=== PATIENT | female | born 1985 | race Caucasian/White ===

== ENCOUNTER 2019-05-04 17:37 | Emergency (ER) | payer OTHER ==
--- NOTE | 2019-05-04 17:58 | PDOC ---
Rapid Medical Evaluation Time Seen by Provider: 05/04/19 17:57 Medical Evaluation: Allergies Allergy/AdvReac Type Severity Reaction Status Date / Time No Known Allergies Allergy Verified 06/28/13 14:12 05/04/19 17:57 HPI:Feeling light headed, dizzy, SOB, Blurry vision sent by urgent care x1 week PE:No gross deficits ORDERS: Labs, U preg, UA and Cx Discharge Disposition - Diagnosis Light headed - Referrals - Patient Instructions - Post Discharge Activity
[2019-05-04 17:59] VITALS: BMI 23.1
[2019-05-04] MEDS ORDERED: SODIUM CHLORIDE 0.9% 500 ML INFUS.BAG IV ONE (19:05)
--- NOTE | 2019-05-04 19:09 | PDOC ---
History of Present Illness - General Chief Complaint: Lightheaded Stated Complaint: DIZZINESS/NAUSEA Time Seen by Provider: 05/04/19 17:57 History Source: Patient Exam Limitations: No Limitations - History of Present Illness Initial Comments: Courtney Hernandez is a 33 yo F who denies having any pmh who presents to the ER from urgent care because she has been experiencing Dizziness, nauseous but no emesis, SOB, lightheadedness, numbness and tingling in both her hands and has been feeling vague overall off symptoms for the past 4 days. Patient states she has tried taking ibuprofen for her symptoms with no relief. Patient states she cannot be as she has only had unprotected sexual intercourse w 1 partner about a week ago but her period started today. Patient denies recent travel, hormone usage, surgeries, immobility, personal or family hx of blood clots, cancer, smoking, leg swelling, palpitations, or hemoptysis. LMP: Began today PCP: Dr. Treadwell PSH: None reported Social Hx: Denies smoking, drinking, or other substance usage Allergies: NKA, NKDA Past History - Past Medical History Allergies/Adverse Reactions: Allergies Allergy/AdvReac Type Severity Reaction Status Date / Time No Known Allergies Allergy Verified 05/04/19 17:57 Home Medications: Ambulatory Orders NK [No Known Home Medication] 05/04/19 - Reproductive History (#): 1 Para: 0 Therapeutic (s) & number: No Spontaneous : 0 - Suicide/Smoking/Psychosocial Hx Smoking Status: Yes Smoking History: Never smoked Number of Cigarettes Smoked Daily: 6 Hx Alcohol Use: No Drug/Substance Use Hx: No Review of Systems - Review of Systems Able to Perform ROS?: Yes Comments:: CONSTITUTIONAL: Absent: fever, chills, diaphoresis, generalized weakness, malaise, loss of appetite HEENT: Absent: rhinorrhea, nasal congestion, throat pain, throat swelling, difficulty swallowing, mouth swelling, ear pain, eye pain, visual Changes CARDIOVASCULAR: Absent: chest pain, syncope, palpitations, irregular heart rate, lightheadedness , peripheral edema RESPIRATORY: Present: shortness of breath Absent: cough, dyspnea with exertion, orthopnea, wheezing, stridor, hemoptysis GASTROINTESTINAL: Present: Nausea Absent: abdominal pain, abdominal distension, vomiting, diarrhea, constipation, melena, hematochezia GENITOURINARY: Absent: dysuria, frequency, urgency, hesitancy, hematuria, flank pain, genital pain MUSCULOSKELETAL: Absent: myalgia, arthralgia, joint swelling SKIN: Absent: rash, itching, pallor HEMATOLOGIC/IMMUNOLOGIC: Absent: easy bleeding, easy bruising, lymphadenopathy, frequent infections ENDOCRINE: Absent: unexplained weight gain, unexplained weight loss, heat intolerance, cold intolerance NEUROLOGIC: Present: dizziness, paresthesias Absent: headache, focal weakness, unsteady gait, seizure, mental status changes , bladder or bowel incontinence PSYCHIATRIC: Present: Anxiety Absent: depression, suicidal or homicidal ideation, hallucinations. *Physical Exam - Vital Signs Last Vital Signs Temp Pulse Resp BP Pulse Ox 98.9 F 85 18 129/81 99 05/04/19 17:57 05/04/19 17:57 05/04/19 17:57 05/04/19 17:57 05/04/19 17:57 - Physical Exam Comments: GENERAL: Well developed, well nourished. Awake and alert. No acute distress, but mildly anxious. HEENT: Normocephalic, atraumatic. PERRLA, EOMI. No conjunctival pallor. Sclera are non- icteric. Moist mucous membranes. Oropharynx is clear. NECK: Supple. Full ROM. No JVD. CARDIOVASCULAR: Regular rate and rhythm. No murmurs, rubs, or gallops. Distal pulses are 2+ and symmetric. PULMONARY: No evidence of respiratory distress. Lungs clear to auscultation bilaterally. No wheezing, rales or rhonchi. ABDOMINAL: Soft. Non-tender. Non-distended. No rebound or guarding. No organomegaly. Normoactive bowel sounds. MUSCULOSKELETAL Normal range of motion at all joints. No bony deformities or tenderness. No CVA tenderness. EXTREMITIES: No cyanosis. No clubbing. No edema. No calf tenderness. SKIN: Warm and dry. Normal capillary refill. No rashes. No jaundice. NEUROLOGICAL: Alert, awake, appropriate. Cranial nerves 2-12 intact. No deficits to light touch in face, upper extremities and lower extremities. No motor deficits in the in face, upper extremities and lower extremities. Normal speech. Gait is normal without ataxia. PSYCHIATRIC: Anxious affect. Cooperative. Good eye contact. Appropriate mood. ED Treatment Course - LABORATORY CBC & Chemistry Diagram: 05/04/19 19:13 05/04/19 19:15 Medical Decision Making - Medical Decision Making Courtney Hernandez is a 33 yo F who denies having any pmh who presents to the ER from urgent care because she has been experiencing Dizziness, nauseous but no emesis, SOB, lightheadedness, numbness and tingling in both her hands and has been feeling vague overall off symptoms for the past 4 days. Patient states she has tried taking ibuprofen for her symptoms with no relief. Patient states she cannot be as she has only had unprotected sexual intercourse w 1 partner about a week ago but her period started today. Patient denies recent travel, hormone usage, surgeries, immobility, personal or family hx of blood clots, cancer, smoking, leg swelling, palpitations, or hemoptysis. Vital Signs Temp Pulse Resp BP Pulse Ox 98.9 F 85 18 129/81 99 05/04/19 17:57 05/04/19 17:57 05/04/19 17:57 05/04/19 17:57 05/04/19 17:57 DDx IBNLT: PNA, pneumothorax, URI, electrolyte/metabolic disturbance, PE, arrhythmia, dehydration, - IUP vs ectopic Plan: Labs, Urine, CXR, EKG, IV hydration, +/- D-Dimer, re-assess. MDM: Considering patient is short of breath must consider PE in the differential. Patient can be PERCed out and patient has a Wells score of 0. Will consider getting a D-Dimer if the entire workup is negative. Labs: Normal, no acute abnormalities. D-Dimer normal. Urine: Clean, no signs of infection. HCG negative CXR: Normal with no signs of infiltrate EKG: NS rate of 74, narrow complexes, borderline LAD possibly artifact, no hypertrophy, no ST elevations or depressions, no Q waves, TWI in V2. Re-assessment: Labs, imaging, and urine all normal. I suspect there is a component of anxiety involved. Will give patient xanax and then re-assess. Spoke with patient regarding EKG findings and advised to follow up with a saturation diver as an outpatient. Disposition: Home with PCP and cardio fu. Strict return precautions discussed. *DC/Admit/Observation/Transfer Diagnosis at time of Disposition: Light headed - Discharge Dispostion Disposition: HOME Condition at time of disposition: Improved Decision to Admit order: No - Referrals Referrals: Michaelle Treadwell MD [Primary Care Provider] - Amish Enriquez MD [Staff Physician] - - Patient Instructions Printed Discharge Instructions: Nausea (Alternative Therapy), DI for Shortness of Breath, How to Manage Shortness of Breath Additional Instructions: You came into the ER with shortness of breath, nausea and vomiting. We looked at your blood and urine and found no abnormalities. We also did a chest x-ray which was normal. Please make sure to follow up with your primary care doctor in the next 3 to 5 days to make sure you are feeling better and being taken care of. Please also make sure to follow up with the saturation diver we are referring you to in the next 3 to 5 days. Come back to the ER immediately if your pain worsens or you have any other new or worsening concerns. Thank you for coming to the [facility] ER. We hope you feel better soon! Print Language: ANGUILLAN - Post Discharge Activity
[2019-05-04 19:32] LABS: BASO % 0.9 % (0-2.0); EOS % 0.6 % (0-4.5); HEMATOCRIT 38.9 % (32.4-45.2); HEMOGLOBIN 13.1 GM/dL (10.7-15.3); MCHC 33.7 g/dl (32.0-36.0); MEAN CELL VOLUME 91.8 fl (80-96); MEAN PLT VOLUME 8.3 fl (7.5-11.1); MONO % 6.2 % (3.8-10.2); NEUT % 58.3 % (42.8-82.8); PLATELET COUNT 267 K/MM3 (134-434); RBC 4.24 M/mm3 (3.60-5.2); RDW 13.6 % (11.6-15.6); WHITE BLOOD COUNT 6.7 K/mm3 (4.0-10.0)
[2019-05-04 19:50] LABS: INR 0.91 (0.83-1.09); PROTHROMBIN TIME (PATIENT) 10.7 SEC (9.7-13.0)
[2019-05-04 19:56] LABS: ALBUMIN 4.3 g/dl (3.4-5.0); ALK PHOS 62 U/L (45-117); ANION GAP 6 MMOL/L (8-16); BILIRUBIN,TOTAL 0.3 mg/dL (0.2-1); BLOOD UREA NITROGEN 11.4 mg/dL (7-18); CALCIUM 9.5 mg/dL (8.5-10.1); CHLORIDE 108 mmol/L (98-107); CO2 27 mmol/L (21-32); CREATININE 0.9 mg/dL (0.55-1.3); GLUCOSE,RANDOM 85 mg/dL (74-106); SGOT/AST 16 U/L (15-37); SGPT/ALT 19 U/L (13-61); SODIUM 141 mmol/L (136-145); TOT PROT 7.9 g/dl (6.4-8.2)
[2019-05-04 20:41] LABS: URINE APPEARANCE CLEAR; URINE BILIRUBIN NEGATIVE (NEGATIVE); URINE COLOR YELLOW; URINE GLUCOSE (UA) NEGATIVE (NEGATIVE); URINE KETONE NEGATIVE (NEGATIVE); URINE LEUK ESTERASE NEGATIVE (NEGATIVE); URINE NITRITE NEGATIVE (NEGATIVE); URINE PROTEIN NEGATIVE (NEGATIVE); URINE UROBILINOGEN 0.2 mg/dL (0.2-1.0)
[2019-05-04 21:27] LABS: ACTIVATED PTT 30.4 SECONDS (25.2-36.5)
[2019-05-04] MEDS ORDERED: ALPRAZolam 0.25 MG TABLET PO ONE (21:37)
[2019-05-04] MEDS ORDERED: ALPRAZolam 0.25 MG TABLET ONE (21:44)
--- NOTE | 2019-05-04 22:05 | PDOC ---
Attending Attestation - Resident Resident Name: TikidaisyRadhaNilson - ED Attending Attestation I have performed the following: I have examined & evaluated the patient, The case was reviewed & discussed with the resident, I agree w/resident's findings & plan - HPI HPI: 05/04/19 21:59 see resident hpi - Physicial Exam PE: 05/04/19 22:00 agree with resident exam - Medical Decision Making 05/04/19 22:01 33-year-old female with dyspnea EKG shows a normal sinus rhythm at 74 bpm There appeared to be Q waves in leads 3 and aVF though there is artifact along the baseline which somewhat affects interpretation Labs were unremarkable Chest x-ray shows no acute infiltrate Patient will be discharged home with recommended outpatient primary care and Cardiology Follow-Up
[2019-05-04 22:38] VITALS: BP 131/79; PULSE 72; TEMP 98.6
--- NOTE | 2019-05-05 12:43 | EKG ---
Test Reason : Blood Pressure : / mmHG Vent. Rate : 074 BPM Atrial Rate : 074 BPM P-R Int : 160 ms QRS Dur : 052 ms QT Int : 388 ms P-R-T Axes : 057 -31 011 degrees QTc Int : 430 ms POOR DATA QUALITY, INTERPRETATION MAY BE ADVERSELY AFFECTED NORMAL SINUS RHYTHM LEFT AXIS DEVIATION INFERIOR INFARCT , AGE UNDETERMINED ABNORMAL ECG NO PREVIOUS ECGS AVAILABLE Confirmed by Neri Anderson MD ([id number]) on 05/05/2019 12:42:57 PM Referred By: Confirmed By:Neri Anderson MD
== END 2019-05-04 22:40 | disposition home or self-care (01) ==
LOC: JER 17:37
DX: R42 Dizziness and giddiness (principal)
CPT/HCPCS: 36415; 71046-TC-FY; 80053; 81003; 84443; 84484; 84703; 85025; 85379; 85610; 85730; 87077; 87086; 93005; 93010; 99284-25

== ENCOUNTER 2020-12-03 20:03 | Emergency (ER) | payer OTHER ==
[2020-12-03 20:14] VITALS: BP 150/82; PULSE 73; TEMP 98; BMI 24.2
[2020-12-03 20:51] LABS: BASO % 0.8 % (0-2.0); EOS % 0.7 % (0-4.5); HEMATOCRIT 41.5 % (32.4-45.2); HEMOGLOBIN 13.7 GM/dL (10.7-15.3); LYMPH % 32.3 % (8-40); MCH 30.4 pg (25.7-33.7); MCHC 33.1 g/dl (32.0-36.0); MEAN CELL VOLUME 91.9 fl (80-96); MEAN PLT VOLUME 9.4 fl (7.5-11.1); NEUT % 60.2 % (42.8-82.8); PLATELET COUNT 242 K/MM3 (134-434); RBC 4.52 M/mm3 (3.60-5.2); RDW 13.6 % (11.6-15.6); WHITE BLOOD COUNT 7.4 K/mm3 (4.0-10.0)
[2020-12-03 20:59] LABS: INR 0.94 (0.83-1.09); PROTHROMBIN TIME (PATIENT) 11.4 SEC (9.7-13.0)
[2020-12-03 21:01] LABS: ACTIVATED PTT 28.3 SECONDS (25.2-36.5)
[2020-12-03 22:16] LABS: CHLORIDE 106 mmol/L (98-107); POTASSIUM 4.1 mmol/L (3.5-5.1); SODIUM 138 mmol/L (136-145)
[2020-12-03 22:17] LABS: CALCIUM 9.3 mg/dL (8.5-10.1)
[2020-12-03 22:18] LABS: ANION GAP 6 MMOL/L (8-16); BLOOD UREA NITROGEN 9.4 mg/dL (7-18); CO2 26 mmol/L (21-32); GLUCOSE,RANDOM 81 mg/dL (74-106)
[2020-12-03 22:21] LABS: CREATININE 0.9 mg/dL (0.55-1.3); SGOT/AST 16 U/L (15-37); SGPT/ALT 21 U/L (13-61)
[2020-12-03 22:22] LABS: BILIRUBIN,TOTAL 0.4 mg/dL (0.2-1); TOT PROT 7.7 g/dl (6.4-8.2)
[2020-12-03 22:24] LABS: ALK PHOS 58 U/L (45-117)
== END 2020-12-03 23:50 | disposition home or self-care (01) ==
LOC: JER 20:03
DX: R07.9 Chest pain, unspecified (principal)
CPT/HCPCS: 36415; 80053; 84484; 84703; 85025; 85610; 85730; 93005; 93010; 99285-25